=== PATIENT | male | born 1945 | race Caucasian/White ===

== ENCOUNTER 2020-07-23 07:12 | Day surgery (SDC) | payer MEDICARE ==
[~2020-07-23] VITALS: Ht 182.9 cm; Wt 102.7 kg
[2020-07-23] VITALS (13 sets, daily range): BP systolic 89–125; BP diastolic 54–89
[2020-07-23] MEDS ORDERED: MIDAZolam 1mg/ml 10ml vial IV ONE (07:40)
[2020-07-23] MEDS ORDERED: morphine 10mg/ml inj. IV ONE (07:40)
[2020-07-23] MEDS ORDERED: diphenhydrAMINE 25mg capsule PO ONE (07:40)
[2020-07-23] MEDS ORDERED: atropine 0.1mg/ml 10ml syringe IV ONE (07:40)
[2020-07-23] MEDS ORDERED: normal saline 1000ml 1,000 ML IV SCH (07:40)
[2020-07-23] MEDS ORDERED: LORazepam 0.5 MG tablet PO ONE (07:40)
[2020-07-23] MEDS ORDERED: amiodarone 150mg/dext, iso-os 100 ML IV ONE (07:45)
[2020-07-23 07:49] LABS: BASOPHILS % (AUTO) 0.6 % (0-1); EOSINOPHILS # (AUTO) 0.1 X10'3 (0-0.9); EOSINOPHILS % (AUTO) 2.1 % (0-6); HEMATOCRIT 42.8 % (42.0-52.0); LYMPHOCYTES % (AUTO) 16.8 % (21-51); MEAN CORPUSCULAR HEMOGLOBIN 28.5 PG (27.0-31.0); MEAN CORPUSCULAR HGB CONC 32.7 g/dL (33.0-36.5); MEAN CORPUSCULAR VOLUME 87.1 FL (78-98); MEAN PLATELET VOLUME 7.8 FL (7.4-10.4); MONOCYTES # (AUTO) 0.6 X10'3 (0-0.9); MONOCYTES % (AUTO) 9.8 % (2-12); NEUTROPHILS # (AUTO) 4.4 X10'3 (1.8-7.7); NEUTROPHILS % (AUTO) 70.7 % (42-75); PLATELET COUNT 223 X10'3 (140-440); RED BLOOD COUNT 4.91 X10'6 (4.70-6.10); RED CELL DISTRIBUTION WIDTH 15.2 % (11.5-14.5); WHITE BLOOD COUNT 6.2 X10'3 (4.5-11.0)
[2020-07-23 08:01] LABS: ALBUMIN 3.3 G/DL (3.4-5.0); ANION GAP 8 (8-16); BLOOD UREA NITROGEN 23 MG/DL (7-18); CALCIUM 8.5 MG/DL (8.5-10.1); CHLORIDE 110 MMOL/L (99-107); GLUCOSE 145 MG/DL (70-104); POTASSIUM 4.5 MMOL/L (3.5-5.1); SODIUM 140 MMOL/L (135-145); TOTAL CARBON DIOXIDE 22.4 MMOL/L (24-32); eGFR 73 ML/MIN
[2020-07-23] MEDS ORDERED: WARF-55 PO (08:04)
[2020-07-23] MEDS ORDERED: METO-411 PO (08:04)
[2020-07-23] MEDS ORDERED: WARF2.5T82 PO (08:04)
[2020-07-23] MEDS ORDERED: ASCO100T12 PO (08:04)
[2020-07-23] MEDS ORDERED: ASPI81TA30 PO (08:04)
[2020-07-23] MEDS ORDERED: ATOR20TA66 PO (08:04)
== END 2020-07-23 12:00 | disposition home or self-care (01) ==
LOC: SSTAY O 07:12
PROVIDERS: ATTEND Internal Medicine Cardiovascular Disease
DX: I48.19 Other persistent atrial fibrillation (principal); I25.10 Atherosclerotic heart disease of native coronary artery without angina pectoris; Z95.1 Presence of aortocoronary bypass graft; I10 Essential (primary) hypertension; E78.5 Hyperlipidemia, unspecified; Z95.2 Presence of prosthetic heart valve; Z79.899 Other long term (current) drug therapy
CPT/HCPCS: 36415; 80048; 85025; 85610; 92960; 93005; J0461; J2250; J2270; J7030; Q0163

== ENCOUNTER 2022-03-23 13:41 | Outpatient (CLI) | payer MEDICARE ==
[~2022-03-23 13:41] MED LIST: ASCO100T12 PO; ASPI81TA30 PO; ATOR20TA66 PO; METO-411 PO; WARF-55 PO; WARF2.5T82 PO
== END 2022-03-23 23:59 | disposition home or self-care (01) ==
LOC: RT 13:41
PROVIDERS: ATTEND Internal Medicine Cardiovascular Disease
DX: M47.814 Spondylosis without myelopathy or radiculopathy, thoracic region (principal); I70.0 Atherosclerosis of aorta; Z95.1 Presence of aortocoronary bypass graft; Z79.899 Other long term (current) drug therapy
CPT/HCPCS: 71046; 85018; 94010; 94727; 94729

== ENCOUNTER 2025-06-06 05:45 | Day surgery (SDC) | payer MEDICARE ==
[2025-06-05 11:49] LABS: MEAN PLATELET VOLUME 8.0 FL (7.4-10.4); RED CELL DISTRIBUTION WIDTH 16.8 % (11.5-14.5)
[2025-06-05 12:07] LABS: APTT 38 SECONDS (22-32)
[2025-06-05 12:13] LABS: CREATININE 1.22 MG/DL (0.60-1.10); TOTAL CARBON DIOXIDE 27.8 MMOL/L (24-32); eGFR 57 ML/MIN
[2025-06-05 13:44] LABS: INR 4.7 INR
[2025-06-06] VITALS (15 sets, daily range): BP systolic 101–144; BP diastolic 30–83; PULSE 57–116; RESP 12–19; TEMP 97.8; O2SAT 93–98
[~2025-06-06] VITALS: Ht 182.9 cm; Wt 83.1 kg
[2025-06-06] MEDS ORDERED: fentaNYL/PF 50MCG/1 ML 2ML syringe ONE (06:01)
[2025-06-06] MEDS ORDERED: heparin 1,000unit/ml 10ml vial 10 ML ONE (06:01)
[2025-06-06] MEDS ORDERED: verapamil 2.5 mg/ml inj IV ONE (06:01)
[2025-06-06] MEDS ORDERED: iohexol 350 MG/ML 50ML vial IV ONE (06:01)
[2025-06-06] MEDS ORDERED: LIDOcaine 1% (10mg/ml) 2ml vial ONE ×2 (06:01→06:06)
[2025-06-06] MEDS ORDERED: midazolam 1 mg/ML 2ml injection ONE (06:01)
[2025-06-06] MEDS ORDERED: nitroGLYCERIN 500mcg/5mL D5W 5 ML IV ONE (06:02)
--- NOTE | 2025-06-06 06:22 | ELECTROCARDIOGRAPH REPORT ---
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 MELVA Rooney Measurements Intervals [place] Rate: 82 P: 0 [place]: 0 QRS: 17 QRSD: 124 T: -73 QT: 356 QTc: 416 Interpretive Statements Atrial fibrillation Ventricular premature complex Nonspecific intraventricular conduction delay Inferior infarct, age indeterminate Lateral leads are also involved Electronically Signed On 06-07-2025 12:38:[address] MELVA Rooney Please click the below link to view image of tracing.
[2025-06-06] MEDS: phytonadione inj. 5 MG in normal saline 100ml IV soln 100 ML IV ONE (06:23)
[2025-06-06] MEDS ORDERED: LAN0.125T PO (06:26)
[2025-06-06] MEDS ORDERED: METO-395 PO (06:26)
[2025-06-06] MEDS ORDERED: FURO20TA4 PO (06:26)
[2025-06-06] MEDS ORDERED: AMI200T PO (06:26)
[2025-06-06] MEDS ORDERED: UBID100C16 PO (06:27)
[2025-06-06 07:26] LABS: INR 4.4 INR
[2025-06-06 08:30] LABS: ISTAT HGB ART 12.2 g/dl (14.0-17.9); ISTAT Hct ART 36 %PCV (42-52); ISTAT O2 SATURATION ARTERIAL 91 % (95-98); ISTAT SOURCE ART
[2025-06-06] MEDS: sodium bicarbonate 1meq/ml syr 150 ML in dextrose 5%-water 1,000 ML IV ONE (09:10)
[2025-06-06 09:13] LABS: INR 3.4 INR
[2025-06-06] MEDS: DOBUTamine-DoBUTrex 500mg/D5W 250 ML IV SCH (09:18)
[2025-06-06] MEDS ORDERED: SPIR25TA5 PO (10:30)
[2025-06-06] MEDS: ACETYLCYSTEINE 200 MG/1 ML 4 ML ORAL SOLUTION PO SCH (16:39)
--- NOTE | 2025-06-06 20:04 | CARDIOLOGY REPORT ---
DATE OF SERVICE: 06/06/2025 DICTATING PHYSICIAN: MELVA Becker MD CARDIAC CATHETERIZATION GENDER: Male. AGE: 79 years. HEIGHT: 183 cm. WEIGHT: 80 kg. BODY SURFACE AREA: 2.02 meters squared. PRIMARY PHYSICIAN: Dr. Brett Pollock INTERNAL CONTROL ANALYST: MELVA Becker MD INDICATIONS FOR PROCEDURE: The patient is a 79-year-old male with a history of hypertension, hyperlipidemia, CAD, cardiomyopathy, and CABG. His history of CABG goes back to 2000 when he had CABG a week ago at [facility] by Dr. Ma at that time he had NEWTON to LAD and SVG to RCA. The patient also had a mechanical mitral valve replacement by Dr. Ma at the same time in 2000 and he has been on Coumadin. Back in November 2024, the patient's ejection fraction was 40-45% and repeat echocardiogram in 05/2025 at [facility] showed ejection fraction has dropped to 10-15%. The patient has been progressively becoming weak and tired and fatigued. The CHF appears to have gotten worse. After discussing risks, benefits, alternative options, the patient wants to proceed with definitive evaluation with coronary angiography. Risks, benefits and alternative options discussed and informed consent obtained. PROCEDURE TECHNIQUE: The patient underwent right heart catheterization from right antecubital approach. A 6-Danish right antecubital sheath. Post-procedure access site hemostasis was secured with manual compression. The patient underwent left heart catheterization via right radial approach with left radial sheath. Post procedure access site hemostasis secured with radial band. PROCEDURES DONE: 1.Left ultrasound-guided left radial artery visualization and access. 2.Left radial artery arteriogram 3.Left heart catheterization, LVG. 4.Right heart catheterization. 5.Coronary angiography . 6.NEWTON injection. 7.Graft cineangiography. 8.Conscious sedation for 45 minutes. FINDINGS: HEMODYNAMICS: Aortic systolic 119 and diastolic 58, mean 75 mmHg. LVEDP of 8 mmHg. No significant gradient across the aortic valve. Right atrial mean 3 mmHg. RV 27/1 mmHg. Pulmonary capillary wedge pressure 3 mmHg. Aortic oxygen saturation 91%. Pulmonary artery oxygen saturation is 66%. Cardiac output by thermodilution method is 5.17 L/min. Cardiac index was 2.56 L/min/m2. LEFT VENTRICULOGRAM: Ejection fraction is about 25-30%. CORONARY CINEANGIOGRAPHY: Left main coronary artery engaged with JL4 catheter from right radial portal. Left main coronary artery is a sharp caliber was elongated with JL4 catheter from right radial approach. Left main is short with no significant narrowing. LAD is 100% occluded. Circumflex artery is a medium caliber vessel arising at the bifurcated left main coronary artery and coursing through the left AV groove with mild luminal irregularities. OM1 is very small. OM2 is a codominant vessel with 2.5 mm mild luminal irregularities and ater that it continues as PDA with mild luminal irregularities. Right coronary artery is 100% occluded. 2/2 bypasses patent. Newton to LAD patent. LAD itself is 2.5 mm vessel with mild luminal irregularities. SVG to RCA is patent. Mild luminal irregularities. IMPRESSION: A 79-year-old male with LV ejection fraction of 25%, severe LV global hypokinesia present. However, his filling pressures are normal, namely pulmonary capillary wedge pressure of 3 mmHg, with no gradient across the aortic valve. Pulmonary capillary wedge pressure of 3 mmHg. LVEDP was 8 mmHg. No gradient across the aortic valve. Left main normal, LAD 100% occluded. RCA 100% occluded. Dominant circumflex artery with minimal luminal irregularities Two of two bypasses patent. Newton to LAD patent. SVG to Nondominant right coronary Artery is patent RECOMMENDATIONS: Recommend continued aggressive coronary risk factor modification, namely low-fat, low-cholesterol diet, and maintaining ideal body weight. The patient will be optimized with GDMT therapy with beta-blockers with metoprolol and losartan 25 mg p.o. daily. [facility] could not [facility]. We will add spironolactone 25 mg p.o. daily. Recommend diet, weight loss, and exercise program. Recommended fluid restriction. The patient was educated about CHF. Patient appeared to be in AFib today. We will get an event monitor. MELVA Becker MD TID: [id number] RECEIPT: [id number] GABY/MYLES/TED cc: Brett Pollock [facility]
[2025-06-10 12:49] LABS: ISTAT HGB MIX 11.9 g/dl (14.0-17.9); ISTAT Hct MIX 35 %PCV (42-52); ISTAT O2 SATURATION MIX VENOUS 66 % (60-80); ISTAT SOURCE VEN
== END 2025-06-06 17:15 | disposition home or self-care (01) ==
LOC: SSTAY O 05:45
PROVIDERS: ATTEND Internal Medicine Cardiovascular Disease
DX: I25.10 Atherosclerotic heart disease of native coronary artery without angina pectoris (principal); I42.9 Cardiomyopathy, unspecified; I42.0 Dilated cardiomyopathy; I48.0 Paroxysmal atrial fibrillation; I10 Essential (primary) hypertension; E78.5 Hyperlipidemia, unspecified; Z79.899 Other long term (current) drug therapy; Z98.890 Other specified postprocedural states
CPT/HCPCS: 36415; 80048; 82803; 83880; 85014; 85025; 85347; 85610; 85730; 93005; 93461; A4615; A6258; A6402; C1725; C1751; C1769; C1894; J1250; J1644; J2003; J2250; J3010; J3430; J3490; J7030; J7070; Q0163; Q9967; Z7610; 76937; 99152; 99153

== ENCOUNTER 2025-07-14 13:10 | Inpatient (IN) | payer MEDICARE ==
[2025-07-14] VITALS (8 sets, daily range): BP systolic 101–146; BP diastolic 55–77; PULSE 50–56; RESP 12–20; TEMP 96.7–97.5; O2SAT 95
[~2025-07-14] VITALS: Ht 182.9 cm; Wt 78.0 kg
[~2025-07-14 13:10] MED LIST changes: +AMIO200T76 PO; -ASCO100T12 PO; -ASPI81TA30 PO; +FURO20TA4 PO; +LAN0.125T PO; +METO-395 PO; -METO-411 PO; +SPIR25TA5 PO; +UBID100C16 PO; -WARF2.5T82 PO
--- NOTE | 2025-07-14 13:22 | ELECTROCARDIOGRAPH REPORT ---
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 Aixa Espinoza Measurements Intervals [place] Rate: 27 P: 0 [place]: 0 QRS: 44 QRSD: 120 T: 3 QT: 594 QTc: 398 Interpretive Statements Junctional rhythm Incomplete left bundle branch block Inferior infarct, age indeterminate Electronically Signed On 07-14-2025 14:59:[address] Aixa Espinoza Please click the below link to view image of tracing.
[2025-07-14 14:01] LABS: MEAN PLATELET VOLUME 9.7 FL (7.4-10.4); RED CELL DISTRIBUTION WIDTH 17.4 % (11.5-14.5)
[2025-07-14 14:07] LABS: CREATININE 1.53 MG/DL (0.60-1.10); PRO BRAIN NATRIURETIC PEPTIDE 2086 PG/ML (0-450); TOTAL CARBON DIOXIDE 29.6 MMOL/L (24-32); eCRCL 44 ML/MIN; eGFR 44 ML/MIN
[2025-07-14] MEDS: DOBUTamine-DoBUTrex 500mg/D5W 250 ML IV SCH (16:08)
[2025-07-14 16:23] LABS: APTT 39 SECONDS (22-32)
[2025-07-14 16:25] LABS: INR 4.2 INR
[2025-07-14] MEDS ORDERED: phytonadione inj. 10 MG in normal saline 100ml IV soln 100 ML IV ONE (16:45)
--- NOTE | 2025-07-14 17:05 | RADIOLOGY REPORT ---
CHEST RADIOGRAPH Indication: CHEST PAIN Technique: Single frontal view of the chest was obtained COMPARISON: None FINDINGS: Lines and Tubes: Median sternotomy Lungs: Clear Pleura: No effusion. No pneumothorax. Cardiomediastinal contours: Cardiomegaly Bones: Unremarkable IMPRESSION: No acute disease.
[2025-07-14] MEDS ORDERED: magnesium Cl slow-release 64mg tablet PO PRN (17:30)
[2025-07-14] MEDS ORDERED: magnesium sulf-water 2g/50mL 50 ML IV PRN (17:30)
[2025-07-14] MEDS ORDERED: magnesium sulf-water 4G/100mL 100 ML IV PRN (17:30)
[2025-07-14] MEDS ORDERED: mag hydrox/Alum hydrox/simeth 30ml oral suspension PO PRN (17:30)
[2025-07-14] MEDS ORDERED: potassium Cl 20 mEq SR tablet PO PRN ×2 (17:30)
[2025-07-14] MEDS ORDERED: potassium Cl 40MEQ/1/2NS 520ml 520 ML IV PRN (17:30)
[2025-07-14] MEDS: normal saline 1000ML IV soln IVB ONE (17:32)
[2025-07-14] MEDS ORDERED: hydrALAZINE 20mg/ml inj. IV PRN (17:35)
[2025-07-14] MEDS: PERFLUTREN PROTEIN-A MICROSPHR (Optison) 0.22 MG/ML 3ML VIAL IV ONE (17:39)
[2025-07-14] MEDS: normal saline 1000ml 1,000 ML IV ONE (17:49)
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
[2025-07-14] MEDS: normal saline 1000ml 1,000 ML IV SCH (19:15)
[2025-07-14] MEDS: K and/or MAG REPLACEMENT MC SCH (20:00)
[2025-07-14] MEDS: docusate sod 100mg capsule PO SCH (20:00)
[2025-07-14 21:22] LABS: INR 4.9 INR
[2025-07-14] MEDS: phytonadione inj. 5 MG in normal saline 100ml IV soln 100 ML IV ONE (21:54)
[2025-07-14] MEDS: sodium bicarbonate 1meq/ml inj 150 ML in sodium chloride 0.45% 1,000 ML IV SCH (22:51)
[2025-07-15] VITALS (37 sets, daily range): BP systolic 88–141; BP diastolic 43–100; PULSE 33–157; RESP 12–22; TEMP 96.7–98.6; O2SAT 92–99
[2025-07-15 00:20] LABS: URINE AMPHETAMINE SCREEN NEGATIVE (Neg); URINE BARBITUATE SCREEN NEGATIVE (Neg); URINE BENZODIAZEPINES SCREEN NEGATIVE (Neg); URINE CANNABINOID SCREEN NEGATIVE (Neg); URINE COCAINE SCREEN NEGATIVE (Neg); URINE METHADONE SCREEN NEGATIVE (Neg); URINE OPIATE SCREEN NEGATIVE (Neg); URINE PHENCYCLIDINE SCREEN NEGATIVE (Neg)
[2025-07-15 00:24] LABS: LEUKOCYTE ESTERASE ,URINE NEGATIVE (Neg); NITRITES, URINE NEGATIVE (Neg); OCCULT BLOOD,URINE SMALL (Neg)
[2025-07-15 00:26] LABS: UA COLLECTION TYPE NON-SPECIFIED
[2025-07-15 00:42] LABS: SQUAMOUS EPITHELIAL CELL,UR NONE SEEN /LPF (FEW)
[2025-07-15] MEDS: magnesium sulf-water 2g/50mL 50 ML IV ONE (02:16)
[2025-07-15] MEDS: amiodarone 50MG/ML inj IV ONE (02:16)
[2025-07-15 02:23] LABS: MEAN PLATELET VOLUME 8.6 FL (7.4-10.4); RED CELL DISTRIBUTION WIDTH 17.6 % (11.5-14.5)
[2025-07-15 02:32] LABS: INR 2.2 INR
[2025-07-15 02:37] LABS: CHOL/HDL RATIO 2.8 (0.00-4.99); CREATININE 1.39 MG/DL (0.60-1.10); LDL CHOLESTEROL 47 MG/DL (50-100); PHOSPHORUS 2.6 MG/DL (2.3-4.5); TOTAL CARBON DIOXIDE 29.7 MMOL/L (24-32); eCRCL 48 ML/MIN; eGFR 49 ML/MIN
[2025-07-15] MEDS: potassium Cl 20 mEq SR tablet PO STA (03:41)
--- NOTE | 2025-07-15 07:23 | ELECTROCARDIOGRAPH REPORT ---
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 MELVA Becker Measurements Intervals [place] Rate: 154 P: -58 MD: 68 QRS: -58 QRSD: 200 T: 126 QT: 348 QTc: 557 Interpretive Statements Extreme tachycardia with wide complex, Ventricular tachycardia. Baseline wander in lead(s) V3,V4 Electronically Signed On 07-15-2025 9:23:[address] MELVA Becker Please click the below link to view image of tracing.
--- NOTE | 2025-07-15 07:24 | ELECTROCARDIOGRAPH REPORT ---
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 MELVA Becker Measurements Intervals [place] Rate: 96 P: 0 [place]: 90 QRS: 77 QRSD: 118 T: 0 QT: 478 QTc: 605 Interpretive Statements Bradycardia,? Junctional escape, ?underlying AFib Nonspecific intraventricular conduction delay Repolarization abnormality, prob rate related Electronically Signed On 07-15-2025 9:24:[address] MELVA Becker Please click the below link to view image of tracing.
[2025-07-15] MEDS ORDERED: amiodarone 50MG/ML inj IV ONE (08:00)
--- NOTE | 2025-07-15 08:19 | ELECTROCARDIOGRAPH REPORT ---
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 MELVA Rooney Measurements Intervals [place] Rate: 34 P: 0 [place]: 127 QRS: 50 QRSD: 137 T: -37 QT: 593 QTc: 446 Interpretive Statements Sinus bradycardia Versus junctional escape Nonspecific intraventricular conduction delay Repol abnrm suggests ischemia, anterolateral ST elevation, consider lateral injury Electronically Signed On 07-15-2025 9:24:[address] MELVA Rooney Please click the below link to view image of tracing.
--- NOTE | 2025-07-15 09:36 | VASCULAR REPORT ---
EXAM: [facility] SCOOTER, [facility] ARTERIAL ANKLE/BRACHIAL INDEX CLINICAL HISTORY: Arterial insufficiency Peripheral vascular disease COMPARISON: None TECHNIQUE: Bilateral systolic ankle and brachial pressures are obtained, with ankle pulse volume waveforms and i ndices. FINDINGS: Pressures: Right Left Brachial 112 mmHg na mmHg PT >255 mmHg >255 mmHg DP >255 mmHg >255 mmHg SCOOTER: Right Left noncompressible noncompressible Pulse volume waveforms: Noncompressible IMPRESSION: Nondiagnostic examination secondary to bilateral noncompressible arteries likely related to underlyin g atherosclerotic calcific disease. 1.0-1.4: normal 0.91-0.99 borderline 0.9: abnormal (i.e. PAD) 0.4-0.9: [id number] PAD <0.4: suggestive of severe PAD
--- NOTE | 2025-07-15 09:36 | VASCULAR REPORT ---
EXAM: [facility] SCOOTER, [facility] ARTERIAL ANKLE/BRACHIAL INDEX CLINICAL HISTORY: Arterial insufficiency Peripheral vascular disease COMPARISON: None TECHNIQUE: Bilateral systolic ankle and brachial pressures are obtained, with ankle pulse volume waveforms and i ndices. FINDINGS: Pressures: Right Left Brachial 112 mmHg na mmHg PT >255 mmHg >255 mmHg DP >255 mmHg >255 mmHg SCOOTER: Right Left noncompressible noncompressible Pulse volume waveforms: Noncompressible IMPRESSION: Nondiagnostic examination secondary to bilateral noncompressible arteries likely related to underlyin g atherosclerotic calcific disease. 1.0-1.4: normal 0.91-0.99 borderline 0.9: abnormal (i.e. PAD) 0.4-0.9: [id number] PAD <0.4: suggestive of severe PAD
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
[2025-07-15] MEDS ORDERED: fentaNYL/PF 50MCG/1 ML 2ML syringe ONE (10:47)
[2025-07-15] MEDS ORDERED: midazolam 1 mg/ML 2ml injection ONE ×2 (10:47)
[2025-07-15] MEDS ORDERED: LIDOcaine 1% W/epiNEPHrine 1:100,000 20ml vial ONE (10:47)
[2025-07-15] MEDS ORDERED: iohexol 350 MG/ML 50ML vial IV ONE (12:36)
[2025-07-15 12:43] LABS: INR 1.2 INR
[2025-07-15] MEDS ORDERED: verapamil 2.5 mg/ml inj IV ONE ×2 (13:12→14:29)
--- NOTE | 2025-07-15 15:22 | ELECTROCARDIOGRAPH REPORT ---
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 MELVA Rooney Measurements Intervals [place] Rate: 62 P: 92 DC: 120 QRS: -73 QRSD: 159 T: 56 QT: 480 QTc: 488 Interpretive Statements Ventricular-paced rhythm, underlying AFib. No further analysis attempted due to paced rhythm Baseline wander in lead(s) I,II,aVR Electronically Signed On 07-16-2025 16:53:[address] MELVA Rooney Please click the below link to view image of tracing.
[2025-07-15] MEDS ORDERED: HYDROcodone/acetaminophen 5mg/325mg tablet PO PRN (15:30)
[2025-07-15] MEDS ORDERED: HYDROcodone/acetaminophen 10/325mg tab PO PRN (15:30)
[2025-07-15] MEDS: DOBUTamine 2000 MCG/250ML BAG IV SCH (16:51)
[2025-07-15] MEDS: vancomycin/NS 1 GM ADD-VANTAGE 250 ML X 1 DOSE IV ONE (16:55)
[2025-07-15 18:09] LABS: INR 1.2 INR
--- NOTE | 2025-07-15 18:33 | CARDIOLOGY REPORT ---
APPROVED REPORT EXAM: Comprehensive 2D, Doppler, and color-flow Echocardiogram. Patient Location: 3024 Heart Rate: 30's bpm Rhythm: ATRIAL FIBRILLATION Indications ARRHYTHMIA TEMPORARY EXTERNAL PACEMAKER CABG x2 2000 UNKNOWN SIZE STJ MVR MECHANICAL ST. [place]IA[place] MVR 2000 [place] Wire Weaver: MD Boaz Previous echo: BVC 12-05-24 EF 40-45%, MVA: N/A, PK V: N/A, GRAD: N/A /4, RVSP 38 mmHg, Jennifer, modPI, RVE , modTR, ASC AO 4.4 cm MMS 05-31- EF 10-15%, 4 CHAMBER ENLARGEMENT, 2D Dimensions RVDd 5.2 cm IVSd 1.2 (0.7-1.1cm) LVDd 6.2 cm PWd 1.2 (0.7-1.1cm) IVSs 1.4 (0.8-1.2cm) LVDs 4.8 (2.5-4.0cm) PWs 1.4 (0.8-1.2cm) LVOT Diameter 1.94 (1.8-2.4cm) LVEF(%) 44.4 (>50%) FS (%) 22.5 % SV 87.4 ml CO 3.1 L/min M-Mode Dimensions Left Atrium(MM) 6.65 (2.5-4.0cm) Aortic Root 3.61 (2.2-3.7cm) Aortic Cusp Exc 2.00 (1.5-2.0cm) Aortic Valve AoV Peak Karlos. 208.8 cm/s AoV VTI 39.0 cm AO Peak GR. 17.4 mmHg AO Mean GR. 7 mmHg LVOT VTI 30.18 cm LVOT Peak Karlos. 134.5 cm/s PRASANNA(VTI)/BSA 2.29 cm2/m2 PRASANNA (VTI) 2.29 cm2 Mitral Valve MV E Velocity 169.7 cm/s MV Peak Gr. 12 mmHg MV DECEL TIME 376 ms MV A Velocity 55.7 cm/s MV Mean Gr. 3 mmHg E/A Ratio 3.0 MV DUuw072.8 cm/sMV VMean72.5 cm/s MVA VTI1.65 cm2MV VTI54.0 cm Pulmonary Valve PAEDP14.34 mmHg Tricuspid Valve TR P. Velocity 314 cm/s RAP ESTIMATE 10 mmHg TR Peak Gr. 39 mmHg RVSP 49 mmHg LEFT VENTRICLE Increased LV size with moderately reduced function. Mild concentric hypertrophy. Patient's ejection f raction was 25% on 06/06/2020 5% on left ventriculography On 5 mcg/kg per minute of dobutamine LVEF i s about 40% RIGHT VENTRICLE RV is severely dilated in size with normal function. Estimated PA systolic pressure of 49 mm of mercu ry. . Increased from exam on 12-05-24. ATRIA Severe biatrial enlargment. AORTIC VALVE Trileaflet AV appears mildly sclerotic and calcified without stenosis. Mild insufficiency. MITRAL VALVE Unknown size Mechanical STJ MVR appears well seated with normal function. MVR appears thickened in PL AX but not abnormal in apicals. 2 washing jets well visualized and unchanged from exam on 12-05-24. MVA : 1.65 cmsq; Peak / mean gradients of 12/3 mmHG. Peak velocity is measured at 170 cm/sec. TRICUSPID VALVE TV appears structurally normal with moderate regurgitation. PULMONIC VALVE Normal PV without stenosis, mild insufficiency. GREAT VESSELS The aortic root is normal in size. Ascending aorta is not well visualized or evaluated. (4.4cm on pre viosu exam) PERICARDIUM Normal pericardium. No effusion. Other Information Study Quality: Adequate Conclusion Patient's ejection fraction was 25% on 06/06/2020 5% on left ventriculography On 5 mcg/kg per minute of dobutamine LVEF is about 40% Increased LV size with moderately reduced function. Mild concentric hypertrophy. RV is severely dilated in size with normal function. Estimated PA systolic pressure of 49 mm of merc ury. . Increased from exam on 12-05-24. Trileaflet AV appears mildly sclerotic and calcified without stenosis. Mild insufficiency. Unknown size Mechanical STJ MVR appears well seated with normal function. MVR appears thickened in PL AX but not abnormal in apicals. 2 washing jets well visualized and unchanged from exam on 12-05-24. MVA: 1.65 cmsq; Peak / mean gradients of 12/3 mmHG. Peak velocity is measured at 170 cm/sec. TV appears structurally normal with moderate regurgitation. Normal PV without stenosis, mild insufficiency. Normal pericardium. No effusion.
[2025-07-15] MEDS: MESSAGE TO NURSING IV ONE (20:00)
[2025-07-15] MEDS: HEPARIN DRIP INITAL BOLUS --- DO NOT GIVE/ORDER MC ONE (20:00)
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
[2025-07-15] MEDS: warfarin 5mg tablet PO SCH (21:38)
[2025-07-15] MEDS: ondansetron/PF 4mg/2ml inj IV PRN (21:43)
[2025-07-15 21:45] LABS: APTT 29 SECONDS (22-32)
[2025-07-15] MEDS: heparin 25,000 UNIT/250ml bag 250 ML IV PRN (22:34)
[2025-07-16] VITALS (25 sets, daily range): BP systolic 92–160; BP diastolic 57–82; PULSE 80–129; RESP 13–20; TEMP 97–98.3; O2SAT 93–99
[2025-07-16] MEDS: metoprolol tartrate 1mg/ml inj IV ONE (01:44)
[2025-07-16 04:48] LABS: MEAN PLATELET VOLUME 9.0 FL (7.4-10.4); RED CELL DISTRIBUTION WIDTH 17.4 % (11.5-14.5)
[2025-07-16 04:54] LABS: INR 1.2 INR
[2025-07-16] MEDS: heparin 10,000 units/1 ML INJ IV PRN (05:50)
[2025-07-16 06:05] LABS: CREATININE 0.90 MG/DL (0.60-1.10); TOTAL CARBON DIOXIDE 29.9 MMOL/L (24-32); eCRCL 74 ML/MIN; eGFR 82 ML/MIN
[2025-07-16] MEDS: MESSAGE TO NURSING IV ONE ×3 (06:06→21:45)
--- NOTE | 2025-07-16 07:01 | ELECTROCARDIOGRAPH REPORT ---
[facility] Test Date: 2025-07-16 Test Time: 07:00:18 Pat Name: ELIU VERDIN Department: [facility] 3S Patient ID: [id number] Room: [place] [address] A Gender: M Director Of Billing: : 1945 Requested By: SEBAS ROONEY Order Number: [id number] Reading MD: Dr. MELVA Rooney Measurements Intervals [place] Rate: 117 P: 136 FL: 174 QRS: 28 QRSD: 114 T: 252 QT: 385 QTc: 538 Interpretive Statements Sinus or ectopic atrial tachycardia Inferoposterior infarct, recent Lateral leads are also involved Prolonged QT interval Electronically Signed On 07-16-2025 16:54:[address] MELVA Rooney Please click the below link to view image of tracing.
--- NOTE | 2025-07-16 07:28 | CARDIOLOGY REPORT ---
DATE OF SERVICE: 07/15/2025 DICTATING PHYSICIAN: MELVA Becker MD BIVENTRICULAR AICD PLACEMENT GENDER: Male. AGE: 79 years. INDICATION: The patient is a 79-year-old male with history of hypertension, hyperlipidemia, CAD, cardiomyopathy, CABG. History of CABG goes back to 2000. He had a CABG x 2 in 2000. At that time, he had NEWTON to LAD and SVG to RCA. The patient had coronary angiogram on 06/06/2025, which showed that his EF was only 25%, severe LV global hypokinesia. Both the grafts were patent, only NEWTON to LAD and nondominant RCA. The patient's GDMT was optimized with metoprolol, losartan and spironolactone. However, the patient was reevaluated and continued to have low ejection fraction, but he was recommended BiV AICD. However, the patient wanted to wait and then he was transferred from [facility] in [place] and the patient also has a mechanical mitral valve back in 2000, was found to be in severe sick sinus syndrome with bradycardia, heart rate in the 20s and 30s. His [id number] medications were stopped. He was reassessed, was put on dobutamine. Heart rate improved shortly. Last night, the patient also had sustained VT causing hemodynamic instability with hypotension and requiring IV amiodarone, and then after discussing risks, benefits and alternative options, the patient has decided to proceed with biventricular AICD implantation. Risks, benefits and alternative options discussed. Informed consent was obtained. PROCEDURES: * Fluoroscopy. * Biventricular AICD placement. * Coronary sinus venography. * Conscious sedation time total of 30 minutes. PRIMARY PHYSICIAN: Brett Pollock DO SURGEON: MELVA Becker MD, [facility] PREPROCEDURE DIAGNOSES: * Ischemic dilated cardiomyopathy with EF of 25%. * Sustained ventricular tachycardia. * Sick sinus syndrome with severe sinus bradycardia. POSTPROCEDURE DIAGNOSES: * Ischemic dilated cardiomyopathy with EF of 25%. * Sustained ventricular tachycardia. * Sick sinus syndrome with severe sinus bradycardia. DESCRIPTION OF PROCEDURE: Left infraclavicular area was prepped and draped in the usual fashion. Three separate accesses were obtained in the left subclavian vein using micropuncture technique. Two micropuncture wires were replaced with three K-wires. A horizontal incision placed in the left infraclavicular area. Using blunt dissection and electrocautery, subcutaneous AICD pocket was fashioned. External ends of the J-wires were retrieved into the AICD pocket. Through one of them, a 9.5 sheath advanced to the subclavian vein, through that RV lead was advanced to the RV apex, screwed into the RV apex. Appropriate pacing and sensing thresholds were obtained. Sheath removed by a peel-away technique and lead anchored to the subcutaneous tissue with Ethibond. Through the second long wire [place] sheath was advanced into right ventricle and then it was screwed into the counter-clock rotation. It was able to engage coronary sinus. coronary sinus venography was done after occluding coronary sinus ostium with balloon-tipped catheter and lateral vein was isolated. We were able to put our [place] catheter into the lateral vein and subsequently PT ChoICE wire was put in, over which active lead was advanced. The lead was advanced to the very distal end of the lateral branch. Appropriate pacing and sensing thresholds were obtained. Sheath removed by a peel-away technique and lead anchored to the subcutaneous tissue with Ethibond. Over the third wire, 7-Czech was advanced, RA lead advanced. J-wire was formed and screwed into the right atrial appendage. Appropriate pacing and sensing thresholds obtained. Sheath removed by peel-away technique and lead anchored to subcutaneous tissue with Ethibond. The pocket was irrigated with copious antibiotic solution. was used. AICD suspended into the AICD pocket. Pocket closed with continuous 0 Vicryl followed by interrupted 2-0 Vicryl. Third layer of interrupted 2-0 applied. Skin approximated with staple. Pressure dressing was applied. TECHNICAL INFORMATION: Device used MRI-compatible PenPath chrome quad MRI, model #[id number], serial #[id number], [employer], 07/15/2025, left pectoral location. RIGHT ATRIAL LEAD: Model #4076, 52 cm long, serial number [id number], right atrial appendage, P-wave amplitude of 1.6 mV, 437 ohms of impedance, pacing threshold 0.75 at 0.4 milliseconds. RV LEAD: Model #[id number], 62 cm long, serial #[id number], R-wave amplitude of 5.5 millivolts, 399 ohms of impedance, pacing threshold of 0.5 at 0.4 milliseconds. LV LEAD: Model #[id number], 88 cm long, serial #[id number], 07/15/2025, R-wave amplitude. IMPRESSION: A 79-year-old male with dilated cardiomyopathy, low ejection fraction, sinus node dysfunction and sustained VT, underwent successful biventricular AICD with no complications. RECOMMENDATIONS: Continue optimization of GDMT therapy. MELVA Becker MD TID: [id number] RECEIPT: [id number] BC/PAR/AMI cc: Brett Pollock DO MTDD
[2025-07-16] MEDS: EMPAGLIFLOZIN 25 MG TABLET PO SCH (07:53)
[2025-07-16] MEDS: digoxin 125mcg (0.125mg) tablet PO SCH (07:53)
[2025-07-16] MEDS ORDERED: non-formulary drug (Ubidecarenone (Coq-10) 200 MG) PO SCH (08:00)
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
[2025-07-16] MEDS ORDERED: amiodarone 50MG/ML inj IV ONE (09:35)
--- NOTE | 2025-07-16 10:10 | RADIOLOGY REPORT ---
CHEST RADIOGRAPH Indication:s/p biventicular AICD Placement Technique: Single frontal view of the chest was obtained COMPARISON: None FINDINGS: Lines and Tubes: Left chest AICD. Median sternotomy. Lungs: Clear Pleura: No effusion. No pneumothorax. Cardiomediastinal contours: Cardiomegaly Bones: Unremarkable IMPRESSION: No acute disease.
[2025-07-16] MEDS: amiodarone 150mg/dext, iso-os 100 ML IV ONE (10:46)
[2025-07-16] MEDS: digoxin 250mcg/ml 2ml ampule IV ONE (11:00)
[2025-07-16] MEDS: metoprolol succinate 25mg (24-HOUR) SR. Tablet PO SCH (11:29)
[2025-07-16 13:06] LABS: PRO BRAIN NATRIURETIC PEPTIDE 7407.0 PG/ML (0-450)
[2025-07-16] MEDS: normal saline 500ml IV soln 500 ML IV SCH (13:38)
[2025-07-16] MEDS: metoprolol succinate 25mg (24-HOUR) SR. Tablet PO ONE ×2 (13:54→22:35)
[2025-07-16] MEDS: amiodarone/D5 360MG/200ML BAG 200 ML IV SCH (13:54)
[2025-07-16 14:26] LABS: INR 1.2 INR
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
[2025-07-16] MEDS: metoprolol tartrate 1mg/ml inj IV PRN (16:01)
[2025-07-16] MEDS: sacubitril/valsartan 24mg-26mg tablet PO SCH (20:12)
[2025-07-16] MEDS: warfarin 10mg tablet PO ONE (20:13)
[2025-07-16] MEDS ORDERED: warfarin 5mg tablet PO SCH (21:00)
[2025-07-17] VITALS (34 sets, daily range): BP systolic 68–125; BP diastolic 38–80; PULSE 76–114; RESP 12–20; TEMP 96.8–98; O2SAT 91–97
[2025-07-17] MEDS: metoprolol tartrate 1mg/ml inj IV SCH (04:19)
[2025-07-17 04:22] LABS: INR 1.4 INR
[2025-07-17 04:24] LABS: CREATININE 1.02 MG/DL (0.60-1.10); TOTAL CARBON DIOXIDE 32.0 MMOL/L (24-32); eCRCL 66 ML/MIN; eGFR 71 ML/MIN
[2025-07-17] MEDS: MESSAGE TO NURSING IV ONE ×3 (04:39→20:52)
[2025-07-17] MEDS: metoprolol succinate 25mg (24-HOUR) SR. Tablet PO SCH ×2 (07:56→20:00)
[2025-07-17] MEDS: EMPAGLIFLOZIN 10 MG TABLET PO SCH (07:57)
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
[2025-07-17] MEDS ORDERED: metoprolol succinate 25mg (24-HOUR) SR. Tablet PO SCH (09:40)
[2025-07-17 10:43] LABS: PRO BRAIN NATRIURETIC PEPTIDE 5059 PG/ML (0-450)
[2025-07-17] MEDS: DOBUTamine-DoBUTrex 500mg/D5W 250 ML IV SCH ×2 (17:28→19:21)
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
[2025-07-17] MEDS ORDERED: sacubitril/valsartan 24mg-26mg tablet PO SCH (20:00)
[2025-07-17] MEDS: warfarin 5mg tablet PO ONE (20:50)
[2025-07-18] VITALS (15 sets, daily range): BP systolic 87–143; BP diastolic 51–97; PULSE 55–111; RESP 15–24; TEMP 96.8–98.8; O2SAT 91–98
[2025-07-18 02:01] LABS: INR 2.7 INR
[2025-07-18] MEDS: MESSAGE TO NURSING IV ONE (03:35)
[2025-07-18 08:55] LABS: MEAN PLATELET VOLUME 9.0 FL (7.4-10.4); RED CELL DISTRIBUTION WIDTH 17.6 % (11.5-14.5)
[2025-07-18 10:13] LABS: CREATININE 1.07 MG/DL (0.60-1.10); TOTAL CARBON DIOXIDE 30.1 MMOL/L (24-32); eCRCL 62 ML/MIN; eGFR 67 ML/MIN
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
[2025-07-18] MEDS: magnesium hydroxide 30ml (MOM) UD suspension PO PRN (16:51)
[2025-07-18] MEDS: sacubitril/valsartan 24mg-26mg tablet PO SCH (20:41)
[2025-07-19 02:32] LABS: MEAN PLATELET VOLUME 8.6 FL (7.4-10.4); RED CELL DISTRIBUTION WIDTH 17.5 % (11.5-14.5)
[2025-07-19 02:41] LABS: INR 3.5 INR
[2025-07-19 02:44] LABS: CREATININE 1.31 MG/DL (0.60-1.10); TOTAL CARBON DIOXIDE 33.9 MMOL/L (24-32); eCRCL 51 ML/MIN; eGFR 53 ML/MIN
[2025-07-19 06:00] VITALS: BP 128/72; PULSE 86; RESP 18; TEMP 96.6; O2SAT 97
[2025-07-19 08:25] VITALS: RESP 18; O2SAT 97
[2025-07-19 11:00] VITALS: BP 140/87; PULSE 77; RESP 18; TEMP 97.5; O2SAT 96
[2025-07-19] MEDS ORDERED: EMPA10TA PO (14:03)
[2025-07-19] MEDS ORDERED: FURO20TA4 PO (14:03)
[2025-07-19] MEDS ORDERED: SACU1TAB PO (14:03)
[2025-07-19] MEDS ORDERED: AMIO200T76 PO (14:03)
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
[2025-07-19] MEDS ORDERED: LACT1CAP26 PO (15:18)
[2025-07-19] MEDS ORDERED: CEPH-585 PO (15:18)
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
== END 2025-07-19 15:21 | disposition home or self-care (01) | DRG 276 ==
LOC: ER 13:10 → ED HOLD 16:52 → PCU 3S 19:05
PROVIDERS: ADMIT Family Medicine; ATTEND Family Medicine
PROC: 0JH609Z Insertion of Cardiac Resynchronization Defibrillator Pulse Generator into Chest Subcutaneous Tissue and Fascia, Open Approach (ICD-10-PCS; principal; 2025-07-15)
PROC: 02HK3KZ Insertion of Defibrillator Lead into Right Ventricle, Percutaneous Approach (ICD-10-PCS; 2025-07-15)
PROC: 02HL3KZ Insertion of Defibrillator Lead into Left Ventricle, Percutaneous Approach (ICD-10-PCS; 2025-07-15)
PROC: 02H63KZ Insertion of Defibrillator Lead into Right Atrium, Percutaneous Approach (ICD-10-PCS; 2025-07-15)
PROC: 30233K1 Transfusion of Nonautologous Frozen Plasma into Peripheral Vein, Percutaneous Approach (ICD-10-PCS; 2025-07-15)
DX: I49.5 Sick sinus syndrome (principal); N17.0 Acute kidney failure with tubular necrosis; I50.22 Chronic systolic (congestive) heart failure; I47.29 Other ventricular tachycardia; J96.11 Chronic respiratory failure with hypoxia; E78.5 Hyperlipidemia, unspecified; N18.9 Chronic kidney disease, unspecified; I48.91 Unspecified atrial fibrillation; I42.0 Dilated cardiomyopathy; I27.21 Secondary pulmonary arterial hypertension; I25.10 Atherosclerotic heart disease of native coronary artery without angina pectoris; Z96.641 Presence of right artificial hip joint; I73.9 Peripheral vascular disease, unspecified; Z79.899 Other long term (current) drug therapy; Z79.01 Long term (current) use of anticoagulants; Z95.1 Presence of aortocoronary bypass graft; D64.9 Anemia, unspecified
CPT/HCPCS: 33249; 36415; 36430; 71045; 80048; 80053; 80061; 80076; 80162; 80305; 81001; 81003; 82248; 83036; 83735; 83880; 84100; 84439; 84443; 84484; 85025; 85610; 85730; 86885; 86900; 86901; 87081; 93005; 93306; 93922; 93925; 96361; 96365; 96367; 97110; 97116; 97161; 97530; 99152; 99153; 99285; A4565; A4615; A6212; A6213; A6250; A6449; C1769; C1882; C1895; C1898; C1900; G0378; J0282; J0690; J1160; J1200; J1250; J1644; J1938; J2250; J2405; J3010; J3373; J3430; J3475; J3490; J7030; J7040; P9059; Q9967

== ENCOUNTER 2025-11-05 11:20 | Day surgery (SDC) | payer MEDICARE ==
[~2025-11-05] VITALS: Ht 177.8 cm; Wt 74.2 kg
[~2025-11-05 11:20] MED LIST changes: +AMIO200T73 PO; -AMIO200T76 PO; +EMPA10TA PO; +LACT1CAP26 PO; +SACU1TAB PO; -UBID100C16 PO; +UBID100C51 PO
[2025-11-05] MEDS ORDERED: amiodarone 150mg/dext, iso-os 100 ML IV ONE (11:45)
[2025-11-05] MEDS ORDERED: normal saline 1000ml 1,000 ML IV SCH (11:45)
[2025-11-05] MEDS ORDERED: morphine 10mg/ml inj. IV ONE (11:45)
[2025-11-05] MEDS ORDERED: atropine 0.1mg/ml 10ml syringe IV ONE (11:45)
[2025-11-05] MEDS ORDERED: MIDAZolam 1mg/ml 10ml vial IV ONE (11:45)
[2025-11-05 11:54] VITALS: BP_SYST 161; BP_SYST 97; BP_DIAS 62; BP_DIAS 83; PULSE 40; PULSE 83; RESP 16; TEMP 97.5; TEMP 97.6; O2SAT 94; O2SAT 95
--- NOTE | 2025-11-05 12:04 | ELECTROCARDIOGRAPH REPORT ---
[facility] Test Date: 2025-11-05 Test Time: 11:56:30 Pat Name: ELIU VERDIN Department: SHORT STAY 1ST FLOOR Patient ID: [facility]-[id number] Room: Gender: M Kayak Maker: BENITA : 1945 Requested By: SEBAS ROONEY Order Number: [id number] Reading MD: Dr. Marybeth Altamirano Measurements Intervals [place] Rate: 86 P: -50 IA: 206 QRS: 266 QRSD: 170 T: 74 QT: 443 QTc: 530 Interpretive Statements A-V dual-paced complexes w/ some inhibition No further analysis attempted due to paced rhythm Electronically Signed On 11-06-2025 6:55:[address] Marybeth Altamirano Please click the below link to view image of tracing.
[2025-11-05] MEDS ORDERED: VIT1CAPS9 PO (12:10)
[2025-11-05] MEDS ORDERED: SPIR25TA5 PO (12:10)
[2025-11-05] MEDS ORDERED: EMPA10TA PO (12:10)
[2025-11-05] MEDS ORDERED: OMEP20CA16 PO (12:10)
[2025-11-05] MEDS ORDERED: FURO-150 PO (12:10)
[2025-11-05] MEDS ORDERED: SACU1TAB PO (12:10)
[2025-11-05 12:30] VITALS: BP 97/62; PULSE 83; RESP 16; TEMP 97.5
[2025-11-05 12:37] LABS: MEAN PLATELET VOLUME 8.1 FL (7.4-10.4); RED CELL DISTRIBUTION WIDTH 18.1 % (11.5-14.5)
[2025-11-05] MEDS ORDERED: atropine 0.1mg/ml 10ml syringe ONE (12:40)
[2025-11-05] MEDS ORDERED: midazolam 1 mg/ML 2ml injection ONE (12:40)
[2025-11-05] MEDS ORDERED: fentaNYL/PF 50MCG/1 ML 2ML syringe ONE (12:40)
[2025-11-05] MEDS ORDERED: amiodarone 50MG/ML inj IV ONE (12:48)
[2025-11-05 14:21] VITALS: BP 94/59; PULSE 80; RESP 16; O2SAT 96
[2025-11-05 14:30] VITALS: BP 97/63; PULSE 80; RESP 14; RESP 16; O2SAT 95
--- NOTE | 2025-11-05 14:33 | ELECTROCARDIOGRAPH REPORT ---
[facility] Test Date: 2025-11-05 Test Time: 14:31:40 Pat Name: ELIU VERDIN Department: [facility] Patient ID: [facility]-[id number] Room: Gender: M Certified Pharmacy Technician: BENITA : 1945 Requested By: SEBAS ROONEY Order Number: [id number] Reading MD: Dr. Marybeth Altamirano Measurements Intervals [place] Rate: 80 P: 0 [place]: 54 QRS: 262 QRSD: 175 T: 72 QT: 510 QTc: 589 Interpretive Statements Atrial-ventricular dual-paced rhythm No further analysis attempted due to paced rhythm Electronically Signed On 11-06-2025 6:55:[address] Marybeth Altamirano Please click the below link to view image of tracing.
[2025-11-05 14:45] VITALS: BP 86/56; PULSE 80; RESP 16; O2SAT 95
[2025-11-05 15:00] VITALS: BP 96/61; PULSE 80; RESP 16; O2SAT 94
== END 2025-11-05 15:30 | disposition home or self-care (01) ==
LOC: SSTAY O 11:20
PROVIDERS: ATTEND Internal Medicine Cardiovascular Disease
DX: I48.91 Unspecified atrial fibrillation (principal); I10 Essential (primary) hypertension; I25.10 Atherosclerotic heart disease of native coronary artery without angina pectoris; E78.5 Hyperlipidemia, unspecified; I42.9 Cardiomyopathy, unspecified; Z79.01 Long term (current) use of anticoagulants; Z79.899 Other long term (current) drug therapy; Z90.49 Acquired absence of other specified parts of digestive tract; Z95.1 Presence of aortocoronary bypass graft; Z96.641 Presence of right artificial hip joint; Z98.890 Other specified postprocedural states; Z82.3 Family history of stroke
CPT/HCPCS: 36415; 85025; 92960; 93005; J1200; J2250; J3010; J7030; Z7610; 99152; 99153; J0282; J0461